=== PATIENT | male | born 1995 ===

== ENCOUNTER 2017-07-28 13:52 | Emergency (ER) | payer OTHER ==
[2017-07-28 14:05] VITALS: BMI 19.9
[2017-07-28 14:09] VITALS: BP 97/60; PULSE 70; RESP 18; TEMP 97.6; O2SAT 97
--- NOTE | 2017-07-28 14:40 | ED PDOC ---
Arrival/HPI - General Historian: Patient - History of Present Illness Time/Duration: 1-3 hours Symptom Onset: Sudden Symptom Course: Worsening Quality: Aching Severity Level: 3, 5 - General Chief Complaint: Finger,Hand,&Wrist Time Seen by Provider: 07/28/17 14:28 - History of Present Illness Narrative History of Present Illness (Text): 07/28/17 14:38 21yr old male presents today with left 5th finger pain s/p injury. pt states he was sliding into a base and jammed finger. pt states he was initially able to move the finger but now he cant extend the finger. pt states if he tries to extend the finger he feels a pop in the finger. pt denies numbness, weakness, tingling in the extremity. pt states he took motrin for pain. refusing any medications for pain currently. denies any other complaints. (Aleida Clark ) Past Medical History - Provider Review Nursing Documentation Reviewed: Yes - Travel History Have you recently traveled outside [place] w/in the past 3 mons?: No - Infectious Disease Hx of Infectious Diseases: None - Tetanus Immunization Tetanus Immunization: Unknown - Cardiac Hx Cardiac Disorders: Yes Hx Heart Murmur: Yes - Pulmonary Hx Respiratory Disorders: No - Neurological Hx Neurological Disorder: No - HEENT Hx HEENT Disorder: No - Renal Hx Renal Disorder: No - Endocrine/Metabolic Hx Endocrine Disorders: No - Hematological/Oncological Hx Blood Disorders: No - Integumentary Hx Dermatological Disorder: No - Musculoskeletal/Rheumatological Hx Musculoskeletal Disorders: Yes Other/Comment: fractured L wrist - Gastrointestinal Hx Gastrointestinal Disorders: No - Genitourinary/Gynecological Hx Genitourinary Disorders: No - Psychiatric Hx Psychophysiologic Disorder: No Hx Substance Use: Yes (weed) - Anesthesia Hx Anesthesia: No Family/Social History - Physician Review Nursing Documentation Reviewed: Yes Family/Social History: Unknown Family HX Smoking Status: Never Smoked Hx Alcohol Use: No Hx Substance Use: Yes (weed) Allergies/Home Meds Allergies/Adverse Reactions: Allergies No Known Allergies Allergy (Verified 07/28/17 14:05) Home Medications: Home Meds Medication Instructions Recorded Confirmed No Known Home Med 07/28/17 07/28/17 Review of Systems - Review of Systems Constitutional: absent: Fatigue, Fevers Respiratory: absent: SOB, Cough Cardiovascular: absent: Chest Pain, Palpitations Gastrointestinal: absent: Abdominal Pain, Nausea, Vomiting Musculoskeletal: Arthralgias. absent: Back Pain, Neck Pain Skin: absent: Rash, Pruritis Neurological: absent: Headache, Dizziness Physical Exam Vital Signs Reviewed: Yes Temperature: Afebrile Blood Pressure: Normal Pulse: Regular Respiratory Rate: Normal Appearance: Positive for: Well-Appearing, Non-Toxic, Comfortable Pain Distress: None Mental Status: Positive for: Alert and Oriented X 3 - Systems Exam Head: Present: Atraumatic Mouth: Present: Moist Mucous Membranes Respiratory/Chest: Present: Clear to Auscultation Cardiovascular: Present: Regular Rate and Rhythm Upper Extremity: Present: NORMAL PULSES, Tenderness (left 5th finger; + edema and ecchymosis; with limited extension of finger; palpable click noted with attempted extension at PIP. sensation and distal pulses intact. cap refill <2. ) , Swelling, Neurovascularly Intact, Capillary Refill < 2s. No: Normal ROM, Erythema Neurological: Present: GCS=15, Speech Normal Skin: Present: Warm, Dry Psychiatric: Present: Alert, Oriented x 3 Vital Signs Temp Pulse Resp BP Pulse Ox 07/28/17 14:07 97.6 F 70 18 97/60 L 97 Medical Decision Making ED Course and Treatment: 07/28/17 14:55 I was available for consultation during PA evaluation. The chart was reviewed by me, and I agree with disposition. The documented history was done by the physician hairspring adjuster. The documented physical exam was done by the physician hairspring adjuster. The documented procedures were done by the physician hairspring adjuster. (Júnior Quintanilla) 07/28/17 14:44 Patient nontoxic well-appearing in no distress with stable vital signs X-rays of the left fifth finger:FINDINGS: LEFT SMALL FINGER: There is an acute mildly displaced intra-articular fracture in the distal aspect of the proximal phalanx of the little finger. Bone alignment and mineralization are normal. JOINTS: Normal. SOFT TISSUES: There is mild soft tissue swelling in the little finger. OTHER FINDINGS: None. IMPRESSION: Acute mildly displaced intra-articular fracture in the distal aspect of the proximal phalanx of the little finger with surrounding soft tissue swelling. Patient refused medications for pain finger splint applied I discussed all results with patient advised to followup with the orthopedist/ hand specialist within the next 2 days. advised immediate Return if symptoms worsen persist or new symptoms develop Impression:finger, fracture Motrin every 6 hours as needed for pain Use finger splint Rest, ice, compression, elevation Followup with the orthopedist/hand specialist within the next 2 days Followup with primary care physician within the next 2 days Return if any other concerning symptoms develop (Aleida Clark) - RAD Interpretation Radiology Orders: 07/28/17 14:32 HAND LEFT 5TH DIGIT (FINGER) [RAD] Stat Disposition/Present on Arrival - Present on Arrival Any Indicators Present on Arrival: No History of DVT/PE: No History of Uncontrolled Diabetes: No Urinary Catheter: No History of Decub. Ulcer: No History Surgical Site Infection Following: None - Disposition Have Diagnosis and Disposition been Completed?: Yes Disposition Time: 14:45 Patient Plan: Discharge - Disposition Diagnosis: Finger fracture Disposition: HOME/ ROUTINE Condition: GOOD Discharge Instructions (ExitCare): Finger Fracture (ED) Additional Instructions: Motrin every 6 hours as needed for pain Use finger splint Rest, ice, compression, elevation Followup with the orthopedist/hand specialist within the next 2 days Followup with primary care physician within the next 2 days Return if any other concerning symptoms develo Referrals: Maury Heath MD [Primary Care Provider] - Follow up with primary Jorge Godwin DO [Staff Provider] - Follow up with primary Anni Ruelas MD [Non-Staff] - Follow up with primary Charles Lowe MD [Staff Provider] - Follow up with primary [facility] [Outside] - Follow up with primary [facility] [Outside] - Follow up with primary Forms: [employer] ([place]ian), WORK NOTE
--- NOTE | 2017-07-28 14:53 | RAD ---
PROCEDURE: Left small finger radiographs. HISTORY: jammed left 5th finger, inability to extend at PIP COMPARISON: None. TECHNIQUE: AP radiograph of the left hand, as well as spot oblique and lateral images of left small finger were obtained. FINDINGS: LEFT SMALL FINGER: There is an acute mildly displaced intra-articular fracture in the distal aspect of the proximal phalanx of the little finger. Bone alignment and mineralization are normal. JOINTS: Normal. SOFT TISSUES: There is mild soft tissue swelling in the little finger. OTHER FINDINGS: None. IMPRESSION: Acute mildly displaced intra-articular fracture in the distal aspect of the proximal phalanx of the little finger with surrounding soft tissue swelling.
== END 2017-07-28 15:49 | disposition home or self-care (01) ==
LOC: ED 13:52
DX: S62.617A Displaced fracture of proximal phalanx of left little finger, initial encounter for closed fracture (principal); W23.0XXA Caught, crushed, jammed, or pinched between moving objects, initial encounter; Y93.64 Activity, baseball; Y92.39 Other specified sports and athletic area as the place of occurrence of the external cause